=== PATIENT | male | born 1995 | race Caucasian/White ===

== ENCOUNTER 2019-06-29 16:23 | Emergency (ER) | payer OTHER ==
[2019-06-29 16:35] VITALS: BP 119/75
[2019-06-29] MEDS ORDERED: CHERRY SYRUP 10 ML UDC PO ONE (16:40)
[2019-06-29] MEDS ORDERED: DEXAMETHASONE 10 MG/ML VIAL PO STA (16:40)
--- NOTE | 2019-06-29 16:43 | ED Physician Documentation ---
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 Occasionally it radiates down the right leg. Took Motrin which is helping. No loss of bowel or bladder control. No IV drug use. No fevers. No trauma. Review of Systems Constitutional: denies: Fever GI: denies: Vomiting : denies: Unable to Void, Incontinent Musculoskeletal: denies: Neck pain Neurologic: denies: Focal weakness, Numbness PD PAST MEDICAL HISTORY - Past Medical History Past Medical History: No - Past Surgical History Past Surgical History: No - Present Medications Home Medications: Ambulatory Orders Medication Instructions Recorded Confirmed Meloxicam [Mobic] 15 mg PO DAILY PRN #20 tablet 06/29/19 - Allergies Allergies/Adverse Reactions: Allergies Allergy/AdvReac Type Severity Reaction Status Date / Time No Known Drug Allergies Allergy Verified 06/29/19 16:34 - Living Situation Living Situation: reports: With family Living Arrangement: reports: At home - Social History Does the pt have substance abuse?: No - Family History Family history: reports: Non contributory - Immunizations Immunizations are current?: Yes PD ED PE NORMAL - Vitals Vital signs reviewed: Yes - General General: Alert and oriented X 3, No acute distress, Well developed/nourished - HEENT HEENT: Moist mucous membranes - Neck Neck: Supple, no meningeal sign, No bony TTP - Cardiac Cardiac: RRR, Strong equal pulses - Respiratory Respiratory: No respiratory distress, Clear bilaterally - Abdomen Abdomen: Soft, Non tender, Non distended - Back Back: No spinal TTP, Other (No midline tenderness palpation. No step-off or deformity. Paraspinal spasm present, low lumbar, right side.) - Derm Derm: Warm and dry - Extremities Extremities: Other (Normal bilateral lower extremity patellar and ankle jerk reflexes. Normal great toe extension bilaterally. no saddle anesthesia) - Neuro Neuro: Alert and oriented X 3, No motor deficit, No sensory deficit - Psych Psych: Normal mood, Normal affect Results - Vitals Vitals: Vital Signs - 24 hr 06/29/19 16:33 Temperature 36.3 C L Heart Rate 73 Respiratory 19 Rate Blood Pressure 119/75 O2 Saturation 100 Oxygen O2 Source Room air PD MEDICAL DECISION MAKING - ED course Complexity details: considered differential (No cauda equina, no spinal epidural abscess, no fracture, no aortic dissection or evidence of aneursym rupture), d/w patient, d/w family ED course: 23-year-old male with sciatica. Given dexamethasone here. Will place on meloxicam. Pt will follow-up with his PCP for further care. No evidence of cauda equina, epidural abscess. Patient counseled regarding signs and symptoms for which I believe and urgent re-evaluation would be necessary. Patient with good understanding of and agreement to plan and is comfortable going home at this time This document was made in part using voice recognition software. While efforts are made to proofread this document, sound alike and grammatical errors may occur. Departure - Departure Disposition: 01 Home, Self Care Clinical Impression: Sciatica Qualifiers: Laterality: right Qualified Code(s): M54.31 - Sciatica, right side Condition: Good Instructions: ED Sciatica Follow-Up: your,doctor in 1 week [Other] Prescriptions: Meloxicam [Mobic] 15 mg PO DAILY PRN #20 tablet PRN Reason: pain Comments: Return if you worsen. This should improve over the next few days. Follow-up with your doctor for further care. Forms: Activity restrictions
== END 2019-06-29 16:49 | disposition home or self-care (01) ==
LOC: ED 16:23
DX: M54.41 Lumbago with sciatica, right side (principal); M62.830 Muscle spasm of back
CPT/HCPCS: 99282; 99284

== ENCOUNTER 2019-11-05 09:08 | Emergency (ER) | payer OTHER ==
--- NOTE | 2019-11-05 09:14 | ED Physician Documentation ---
PD HPI GI BLEED - Stated complaint Stated Complaint: BLOOD IN STOOL/HEMRRHOID - History obtained from History obtained from: Patient - History of Present Illness Timing - onset: How many days ago (3-4) Timing - duration: Days (3-4) Timing - details: Gradual onset, Still present (Some tenderness in the rectal area and a small lump and noted bleeding after a bowel movement. He thought it was a hemorrhoid and get some Preparation H. However it is gotten more tender firm and painful over the last couple of days. No prior similar in the past.) Associated symptoms: BRBPR (With a tender lump and hemorrhoid feeling for the last several days.) Similar symptoms before: Has not had sx before Review of Systems Constitutional: denies: Fever, Chills GI: denies: Abdominal Pain, Nausea, Vomiting, Constipation, Diarrhea PD PAST MEDICAL HISTORY - Past Medical History Cardiovascular: None Respiratory: None Neuro: None Endocrine/Autoimmune: None GI: None - Past Surgical History Past Surgical History: No - Present Medications Home Medications: Ambulatory Orders Medication Instructions Recorded Confirmed Meloxicam [Mobic] 15 mg PO DAILY PRN #20 tablet 06/29/19 - Allergies Allergies/Adverse Reactions: Allergies Allergy/AdvReac Type Severity Reaction Status Date / Time No Known Drug Allergies Allergy Verified 11/05/19 09:18 - Social History Does the pt have substance abuse?: No - Immunizations Immunizations are current?: Yes PD ED PE NORMAL - Vitals Vital signs reviewed: Yes - General General: Alert and oriented X 3, Well developed/nourished - Abdomen Abdomen: Soft, Non tender - Male Male : Deferred - Rectal Rectal: Other (Rectal exam shows external hemorrhoids with 2 small loops of hemorrhoid about 1 cm to 1-1/2 cm each. They are purplish color without any active bleeding at this point. They are firm and tender. Exam is consistent with thrombosed hemorrhoid.) - Derm Derm: Normal color, Warm and dry Results - Vitals Vitals: Vital Signs - 24 hr 11/05/19 11/05/19 09:18 10:53 Temperature 36.5 C 36.6 C Heart Rate 68 66 Respiratory 14 14 Rate Blood Pressure 129/84 H 128/80 O2 Saturation 100 100 Oxygen O2 Source Room air Procedures - General procedure General procedure: The thrombosed hemorrhoid was anesthetized locally with 1% lidocaine with epinephrine. A #11 scalpel was then used to make a small slit incision in 2 loops of hemorrhoidal dilation. Forceps was used to extract a clot from each segment and then palpation of it to express further clot. The coloration of the hemorrhoids improved to pink and they softened and decompressed consistent with adequate removal of the clot. Gauze was applied in the rectal area with minimal bleeding. Departure - Departure Disposition: 01 Home, Self Care Clinical Impression: External thrombosed hemorrhoids Condition: Stable Record reviewed to determine appropriate education?: Yes Instructions: ED Hemorrhoids Follow-Up: Darek Nicholas ARNP [Primary Care Provider] - Comments: Warm soaks 2-3 times a day to cleanse the area and promote good drainage. Use the Preparation H hemorrhoidal creams to 3 times a day. With the thrombosed (clot) removed, it should be able to heal up like a regular out hemorrhoid. Ibuprofen or Tylenol as needed for pains. Recheck if not improved well over the next couple of days. Forms: Activity restrictions Discharge Date/Time: 11/05/19 10:53
[2019-11-05] MEDS ORDERED: LIDOCAINE MPF 1%-EPI 1:200000 10 ML VIAL SUBQ STA (09:35)
[2019-11-05] MEDS ORDERED: IBUPROFEN 600 MG TABLET PO STA (09:35)
[2019-11-05 10:55] VITALS: BP 128/80
== END 2019-11-05 10:53 | disposition home or self-care (01) ==
LOC: ED 09:08
DX: K64.5 Perianal venous thrombosis (principal)
CPT/HCPCS: 46083; 99282; 99283; A9270; J3490